=== PATIENT | male | born 1980 | race Two or more races ===

== ENCOUNTER 2024-11-20 17:28 | Emergency (ER) | payer BC, SELFPAY ==
[2024-11-20 17:29] VITALS: BMI 34.9
[2024-11-20 17:49] VITALS: BP 145/83; PULSE 73; RESP 20; TEMP 36.9; O2SAT 98
--- NOTE | 2024-11-20 17:57 | XR_ITS ---
Examination: Duplex scan of the lower extremity, unilateral right Date and time of exam: November 20, 2024, 1830 hours INDICATIONS: Right leg pain beginning 3 weeks ago Technique: Duplex scan of the extremity veins using B-mode/grayscale imaging and Doppler spectral analysis and color flow Attention is directed to internal echogenicity, compression and augmentation involving these veins, color flow assessment, spectral analysis Findings: Major deep venous structures in the extremity demonstrate normal course and caliber. There is no evidence of deep vein thrombosis. Normal color flow and spectral analysis Impression: Negative for DVT..
--- NOTE | 2024-11-20 17:58 | PD.EDRME ---
Rapid Medical Screening Exam E Arrival date/time: 11/20/24 17:28 44-year-old male with no known medical history presents to the emergency room with a chief complaint of pain and tenderness to his right calf x 1 week I have greeted and performed a focused initial assessment of this patient. A comprehensive ED assessment and evaluation of the patient, analysis of all test results, and completion of the medical decision making process will be conducted by additional ED providers. Chief Complaint: Extremity Injury, Lower Vital signs: Vital Signs Temperature 98.5 F 11/20/24 17:49 Pulse Rate 73 11/20/24 17:49 Respiratory Rate 20 11/20/24 17:49 Blood Pressure 145/83 H 11/20/24 17:49 Pulse Oximetry (%) 98 11/20/24 17:49 Oxygen Delivery Method Room Air 11/20/24 17:49 Vital signs reviewed by provider: Yes
[2024-11-20 18:14] LABS: Basophils % (Auto) 0 % (0-2.5); Eosinophils # (Auto) 0.1 Thou/mm3 (0.0-0.5); Eosinophils % (Auto) 1 % (0-10); Hematocrit 44.6 % (41.0-53.0); Hemoglobin 15.8 g/dL (13.5-16.0); Immature Granulocytes % (Auto) 0 % (0-0); Immature Granulocytes Auto 0.02 Thou/mm3 (0.00-0.00); Lymphocytes # (Auto) 2.3 Thou/mm3 (1.0-4.8); Lymphocytes % (Auto) 22 % (10-50); Mean Corpuscular HGB Conc 35.4 g/dl (31.0-37.0); Mean Corpuscular Hemoglobin 30.6 pg (25.0-35.0); Mean Corpuscular Volume 86 fL (80-100); Monocytes # (Auto) 0.7 Thou/mm3 (0.0-0.8); Monocytes % (Auto) 7 % (0-12); Neutrophils # (Auto) 7.2 Thou/mm3 (1.8-7.7); Neutrophils % (Auto) 69 % (37-80); Nucleated Red Blood Cell % 0 /100 WBC (0); Platelet Count 272 Thou/mm3 (140-440); RDW Standard Deviation 39.1 fL (35.1-43.9); Red Blood Count 5.17 Miln/mm3 (4.50-5.90); White Blood Count 10.4 Thou/mm3 (3.8-10.6)
[2024-11-20 18:32] LABS: Alanine Aminotransferase 41 U/L (10-49); Albumin, Serum 4.8 gm/dL (3.5-5.0); Albumin/Globulin Ratio 1.5 (1.2-2.2); Alkaline Phosphatase 50 U/L (46-116); Anion Gap 9 (7-16); Aspartate Amino Transferase 32 U/L (0-34); BUN/Creatinine Ratio 13 Ratio (12-20); Bilirubin,Total 0.7 mg/dL (0.3-1.2); Blood Urea Nitrogen 12 mg/dL (9-23); Calcium 10.3 mg/dL (8.3-10.6); Calcium (Corrected) 10.3 mg/dL (8.5-10.1); Carbon Dioxide 26.8 mMol/L (20.0-31.0); Chloride 107 mMol/L (98-107); Creatinine (Component) 0.9 mg/dL (0.6-1.3); Estimated Creatinine Clearance 108.8 mL/min (>60); Globulin 3.2 gm/dL (2.3-3.5); Glucose 96 mg/dL (74-106); Osmolality,Calculated 284 (275-295); Potassium 4.1 mMol/L (3.4-5.1); Sodium 143 mMol/L (136-145); eGFR > 60 See Note
[2024-11-20 20:05] VITALS: BP 142/88; PULSE 75; RESP 18; TEMP 36.8; O2SAT 99
--- NOTE | 2024-11-20 21:58 | PD.EDADULT ---
ED General RME/HPI General Chief complaint: Extremity Injury, Lower Stated complaint: POSTERIOR R) LEG PAIN, CONSTANT MUSC SPASM Time Seen by Provider: 11/20/24 21:47 Arrival date/time: 11/20/24 17:28 CC: Right calf pain HPI after coming off a horse and landing on the toes of his right foot patient has been experiencing right calf pain but is ignored it and continue to work 2 jobs and now the calf tenderness has increased in intensity. Patient denies numbness or tingling in her toes. Patient was not able to get in with a primary care provider. Patient denies any pain radiating up into the upper leg or down of the foot. Patient denies any reinjury of the site since the initial assault. RME / HPI RME / HPI narrative: 11/20/24 17:28 44-year-old male with no known medical history presents to the emergency room with a chief complaint of pain and tenderness to his right calf x 1 week I have greeted and performed a focused initial assessment of this patient. A comprehensive ED assessment and evaluation of the patient, analysis of all test results, and completion of the medical decision making process will be conducted by additional ED providers. Related Data Home Medications ?Medication ?Instructions ?Recorded ?Confirmed buspirone 7.5 mg tablet 7.5 mg PO QDAY 07/01/22 07/04/22 cholecalciferol (vitamin D3) 25 25 mcg PO QDAY 07/01/22 07/04/22 mcg (1,000 unit) tablet loratadine 10 mg tablet 10 mg PO QDAY 07/01/22 07/04/22 losartan 50 mg tablet 50 mg PO QDAY 07/01/22 07/04/22 meloxicam 15 mg tablet 15 mg PO QDAY 07/01/22 07/04/22 Previous Rx's ?Medication ?Instructions ?Recorded dicyclomine 10 mg capsule 10 mg PO BID #60 caps 07/04/22 Allergies Allergy/AdvReac Type Severity Reaction Status Date / Time No Known Allergies Allergy Verified 11/20/24 17:31 Review of Systems Review of Systems Narrative Review of Systems: GEN: No fever, no chills, no weight loss EYES: No discharge, no visual changes, no pain HEENT: No ear pain, no congestion, no sore throat PULM: No shortness of breath, no cough, no congestion CV: No chest pain, no dyspnea on exertion, no palpitations GI: No nausea, no vomiting, no diarrhea, no pain, no constipation : No frequency, no urgency, no dysuria MUSC/SKEL: No joint pain, no back pain, + calf pain SKIN: No rash PSYCH: No hallucinations, no depression HEME/LYMPH: No easy bleeding or bruising tendencies NEURO: No weakness, no headache Past Medical History Past Medical History NEUROLOGIC: Negative Neurological Disorders or Seizures CARDIAC: Positive Cardiac Disorders, Angina and Hypertension; Negative Congestive Heart Failure RESPIRATORY: Positive Sleep Apnea (STOPPED USING CPAP); Negative Chronic Obstructive Pulmonary Disease (COPD) GASTROINTESTINAL: Negative Gastrointestinal Disorders GENITOURINARY: Positive Genitourinary Disorders (PYELONEPHRITIS); Negative Renal Disease MUSCULOSKELETAL: Positive Musculoskeletal Disorders and Arthritis (JOINT AND MUSCLE PAIN) ENDOCRINE: Negative Endocrine Disorders, Diabetes Mellitus Type 1 or Diabetes Mellitus Type 2 HEMATOLOGIC: Negative Blood Disorders PSYCHO/SOCIAL: Positive Anxiety OTHER HISTORY: Positive Chicken Pox; Negative Autoimmune Disease, Blood Transfusions or Anesthesia Reactions Social History SMOKING STATUS: Former smoker ED Exam Narrative Physical exam: [General: In mild discomfort but not in any acute distress Head normocephalic HEENT: Within acceptable limits Neck is supple nontender Chest equal chest rise nontender to palpation Respiratory: Clear to auscultation no wheezes crackles or rubs CV: Rate rhythm is regular no murmurs rubs or clicks Abdomen is distend soft nontender no masses positive bowel sounds all 4 quadrants Back: No CVA tenderness no spinous process tenderness from cervical spine thoracic and lumbar spine Skin: Intact no petechiae rash induration ulceration or crepitus Extremities: Right lower extremity: Tenderness to palpation to the calf, no ecchymosis edema erythema open lesions induration or ulcerations. Full range of motion of the ankle and toes but with increased pain in the calf. No posterior fossa pain with palpation. Full range of motion and ambulation with the leg. Left leg unremarkable with complete range of motion. Moving all other extremities against resistance cap refill less than 2 seconds neurosensory intact Neuro: Awake alert oriented x3 Glascow coma 15 no focal deficits] Course Quality Measures none Orders Category Date Time Status US venous doppler LE RT Stat Exams 11/20/24 17:57 Completed CBC Stat Lab 11/20/24 18:06 Completed CMP [Comprehensive Metabolic Panel] Stat Lab 11/20/24 18:06 Completed Vital Signs Vital signs: Vital Signs Temperature 98.5 F 11/20/24 17:49 Pulse Rate 73 11/20/24 17:49 Respiratory Rate 20 11/20/24 17:49 Blood Pressure 145/83 H 11/20/24 17:49 Pulse Oximetry (%) 98 11/20/24 17:49 Oxygen Delivery Method Room Air 11/20/24 17:49 MDM Patient data External records reviewed:: [facility] previous records Clinical information provided by:: patient Social determinants that could affect healthcare access:: none Patient has the following chronic illnesses:: None How is presenting disease/condition affected by chronic disease/condition?: uneffected by Evaluation data The following diagnostics were reviewed and interpreted by me:: lab results and radiology exam(s) Lab and/or radiology exams considered but not ordered:: Ultrasound of the leg is negative for DVT. CBC shows no acute leukocytosis anemia thrombocytopenia CMP shows no acute renal impairment transaminitis T. bili elevation or electrolyte imbalance. Interpretation Summary: Patient either has muscle strain that is chronic in nature or a muscle tear, however there is no gross abnormality when comparing left calf with the right calf. Patient is already on anti-inflammatory for his knee and will start taking them in the next 24 hours. Will not add any additional medications to at this time. Patient is advised to follow-up with a primary care provider and consider referral to Ortho if the pain persist. 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 Medications Medications considered but not ordered:: None Medication administrations:: None Consultations Consultation(s) initiated? (list below): No Diagnosis Differential Diagnosis ED Complaint MDM: Right leg DVT, muscle tear, strain Most likely diagnosis given after review of the tests above:: Calf strain Admission Indicated Admission indicated?: not indicated Explain why admission is indicated or not indicated:: Stable for outpatient follow-up Admission Request Was there a request for admission?: No Disposition Plan Disposition Plan: Discharge Discharge Attestation Discharge Attestation: The patient and all family members were given an opportunity to ask questions and understood the discharge instructions. Discharge instructions specifically effects, indications for sooner follow up or return to the emergency department, and the expected course of current diagnosis. Patient condition: Stable Medical Decision Making Differential Diagnosis Differential Diagnosis: Right leg DVT, muscle tear, strain Lab Data 11/20/24 18:06 11/20/24 18:06 Labs: Lab Results 11/20/24 Range/Units 18:06 WBC 10.4 (3.8-10.6) Thou/mm3 RBC 5.17 (4.50-5.90) Miln/mm3 Hgb 15.8 (13.5-16.0) g/dL Hct 44.6 (41.0-53.0) % MCV 86 (80-100) fL MCH 30.6 (25.0-35.0) pg MCHC 35.4 (31.0-37.0) g/dl RDW Std Deviation 39.1 (35.1-43.9) fL Plt Count 272 (140-440) Thou/mm3 Neut % (Auto) 69 (37-80) % Lymph % (Auto) 22 (10-50) % [place] % (Auto) 7 (0-12) % Eos % (Auto) 1 (0-10) % Baso % (Auto) 0 (0-2.5) % Neut # (Auto) 7.2 (1.8-7.7) Thou/mm3 Lymph # (Auto) 2.3 (1.0-4.8) Thou/mm3 [place] # (Auto) 0.7 (0.0-0.8) Thou/mm3 Eos # (Auto) 0.1 (0.0-0.5) Thou/mm3 Baso # (Auto) 0.0 (0.0-0.2) Thou/mm3 Immature Gran # (Auto) 0.02 H (0.00-0.00) Thou/mm3 Absolute Nucleated RBC 0.00 (0.00-0.00) Thou/mm3 Immature Gran % 0 (0-0) % Nucleated RBC % 0 (0) /100 WBC Sodium 143 (136-145) mMol/L Potassium 4.1 (3.4-5.1) mMol/L Chloride 107 (98-107) mMol/L Carbon Dioxide 26.8 (20.0-31.0) mMol/L Anion Gap 9 (7-16) BUN 12 (9-23) mg/dL Creatinine 0.9 (0.6-1.3) mg/dL Estim Creat Clear Calc 108.8 (>60) mL/min eGFR > 60 (60 - ) See Note BUN/Creatinine Ratio 13 (12-20) Ratio Glucose 96 (74-106) mg/dL Calculated Osmolality 284 (275-295) Calcium 10.3 (8.3-10.6) mg/dL Corrected Calcium 10.3 H (8.5-10.1) mg/dL Total Bilirubin 0.7 (0.3-1.2) mg/dL AST 32 (0-34) U/L ALT 41 (10-49) U/L Alkaline Phosphatase 50 (46-116) U/L Total Protein 8.0 (5.7-8.2) gm/dL Albumin 4.8 (3.5-5.0) gm/dL Globulin 3.2 (2.3-3.5) gm/dL Albumin/Globulin Ratio 1.5 (1.2-2.2) Discharge Plan Plan Patient Disposition: HOME (Self Care) Patient condition on transfer: Stable Prescriptions/Referrals Prescriptions/Med Rec: No Action losartan 50 mg tablet 50 mg PO QDAY Patient Comments: TAKE 1 TABLET BY MOUTH EVERY DAY meloxicam 15 mg tablet 15 mg PO QDAY Patient Comments: TAKE 1 TABLET BY MOUTH EVERY DAY FOR 30 DAYS buspirone 7.5 mg tablet 7.5 mg PO QDAY Patient Comments: TAKE 1 TABLET BY MOUTH TWICE A DAY loratadine 10 mg tablet 10 mg PO QDAY Patient Comments: TAKE 1 TABLET BY MOUTH EVERY DAY cholecalciferol (vitamin D3) 25 mcg (1,000 unit) tablet 25 mcg PO QDAY Patient Comments: TAKE 1 TABLET BY MOUTH EVERY DAY dicyclomine 10 mg Capsule 10 mg PO BID Qty: 60 0RF Referrals: Biju Hinds PA-C [Primary Care Provider] - In 1 week Problem List Clinical Impression: Strain of right calf muscle Patient/Caregiver Discharge Instructions Other Activity Instructions:: Use the anti-inflammatories given to you by your primary care provider for pain relief. If there is a worsening of symptoms in spite of these medications follow-up with your PCP consider referral to orthopedics. If the pain becomes excessive including numbness or tingling in the feet return immediately to the emergency room for reevaluation. Education Materials: ED Muscle Strain, Extremity Print Language: Khmer Stand Alone Forms: [employer] Award Info., Work/School Release, Patient Portal Info Letter GIANNA/NEIDA Supervising Physician PA/[employer] Supervising Physician: Madhu Aguila ENP
[2024-11-20 22:14] VITALS: BP 138/86; PULSE 76; RESP 18; TEMP 36.7; O2SAT 98
== END 2024-11-20 22:15 | disposition home or self-care (01) ==
PROVIDERS: Nurse Practitioner Family; Emergency Provider Emergency Medicine; PCP Physician Assistant
DX: S86.811A Strain of other muscle(s) and tendon(s) at lower leg level, right leg, initial encounter (principal); X50.1XXA Overexertion from prolonged static or awkward postures, initial encounter; Y93.52 Activity, horseback riding
CPT/HCPCS: 36415; 80053; 85025; 93971; 99284

== ENCOUNTER → 2025-05-16 | Outpatient (CLI) | payer BC, SELFPAY ==
--- NOTE | 2025-05-16 10:20 | XR_ITS ---
Examination: Duplex scan of the lower extremity, unilateral right Date and time of exam: May 16, 2025 11:12 AM INDICATIONS: Right leg swelling and redness beginning one week ago Technique: Duplex scan of the extremity veins using B-mode/grayscale imaging and Doppler spectral analysis and color flow Attention is directed to internal echogenicity, compression and augmentation involving these veins, color flow assessment, spectral analysis Findings: Major deep venous structures in the extremity demonstrate normal course and caliber. There is no evidence of deep vein thrombosis. Normal color flow and spectral analysis Impression: Negative for DVT..
== END | disposition home or self-care (01) ==
LOC: CDIM 09:54
PROVIDERS: PCP Physician Assistant; Referring Provider Physician Assistant; Visit Provider Physician Assistant
DX: M79.89 Other specified soft tissue disorders (principal); M79.661 Pain in right lower leg
CPT/HCPCS: 93971